=== PATIENT | female | born 1980 | race Two or more races ===

== ENCOUNTER 2024-01-12 22:08 | Emergency (ER) | payer OTHER ==
[~2024-01-12] VITALS: Ht 165.1 cm; Wt 58.5 kg
[2024-01-12] MEDS ORDERED: CLONAZEPAM1 MG PO (22:13)
[2024-01-12] MEDS ORDERED: WELLBUTRIN XL150 M1 PO (22:14)
[2024-01-12] MEDS ORDERED: BUTALB/ACETAMINOPHEN/CAFFEINE 1 TAB TABLET PO ONE ×2 (22:30→22:47)
[2024-01-12] MEDS ORDERED: METHYLPREDNISOLONE SOD SUCC 40 MG VIAL IM ONE (22:30)
[2024-01-12] MEDS ORDERED: ONDANSETRON HCL 2 MG/ML VIAL IM ONE (22:45)
[2024-01-12] MEDS ORDERED: ONDANSETRON HCL 2 MG/ML VIAL ONE (22:48)
[2024-01-12] MEDS ORDERED: METHYLPREDNISOLONE SOD SUCC 40 MG VIAL ONE (22:48)
[2024-01-12] MEDS ORDERED: SUMATRIPTAN SUCCINATE 6 MG/0.5 ML VIAL SUBCUTANEO ONE ×2 (23:00→23:01)
[2024-01-12 23:29] LABS: HEMATOCRIT 32.3 % (36.0-45.00); HEMOGLOBIN 10.9 g/dL (12.0-15.00); MEAN CORPUSCULAR HEMOGLOBIN 31.6 pg (27.00-32.0); MEAN CORPUSCULAR HGB CONC 33.6 g/dl (32.0-36.0); PLATELET COUNT 317 K/uL (150-450); RED BLOOD COUNT 3.44 M/uL (4.00-6.00); RED CELL DISTRIBUTION WIDTH 12.6 % (11.5-14.5)
[2024-01-13] MEDS ORDERED: RIZATRIPTAN5 MG PO (00:07)
== END 2024-01-13 00:13 | disposition home or self-care (01) ==
LOC: ER 22:10
PROVIDERS: General Practice
DX: J00 Acute nasopharyngitis [common cold] (principal); G43.809 Other migraine, not intractable, without status migrainosus; Z20.822 Contact with and (suspected) exposure to COVID-19